=== PATIENT | female | born 1980 | race Caucasian/White ===

== ENCOUNTER 2020-04-14 14:35 | Emergency (ER) | payer MEDICAID, SELFPAY ==
[2020-04-14 14:36] VITALS: BP 135/74; PULSE 82; RESP 16; TEMP 36.8; O2SAT 100; BMI 30.4
--- NOTE | 2020-04-14 15:05 | ED.VIS.GEN ---
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 at a time she indicates she feels of her right hand fingers are numb intimately swollen sensation crosses the hand into the wrist at times her hands seem so numb that sometimes she uses the left hand at work and now she has symptoms bilaterally but right more than left no direct trauma no numbness weakness paresthesias otherwise, no history of trauma carpal tunnel syndrome or other abnormalities no other joint complaints no other complaints except as above Past Medical History - Allergies and Home Meds Allergies/Adverse Reactions: Allergies No Known Allergies Allergy (Verified 04/14/20 14:38) Primary Care Physician: Care Physician,No Primary [Primary Care Provider] - Past Medical History: None Smoking Status: Current every day smoker Review of Systems General: Denies: Chills, Fever, Sweats Eyes: Denies: Visual changes - bilaterally, Diplopia ENT: Denies: Rhinorrhea, Sore throat Cardiovascular: Denies: Chest pain, Palpitations Respiratory: Denies: Dyspnea, Cough, Dyspnea on exertion Gastrointestinal: Denies: Abdominal pain, Nausea, Vomiting, Diarrhea, Melena, Hematochezia Genitourinary: Denies: Dysuria, Hematuria, Frequency Musculoskeletal: Reports: Extremity Pain. Denies: Back pain Skin: Denies: Rash, Wounds Neurological: Denies: Headache, Weakness, Numbness Physical Exam Vital Signs/Narrative: Vital Signs Temp Pulse Resp BP Pulse Ox 04/14/20 14:36 98.2 F 82 16 135/74 H 100 General: Well nourished, Well developed, No Acute Distress Head: Normocephalic, Atraumatic Eyes: Perrl, EOMI ENT: Moist mucous membranes, No rhinorrhea Neck: Supple, Nontender Cardiovascular: Regular rate, Regular rhythm, No murmurs Respiratory: No distress, CTA bilaterally, Chest nontender Abdomen: Soft, Nontender, Nondistended, Normal bowel sounds Back: Nontender, Normal Inspection Extremities: Nontender, No edema Skin: Normal color, No rash Neurological: Alert, Oriented x3, Cranial nerves II-XII grossly intact, Normal Strength, Normal Sensation Psychological: Normal affect, Normal Mood Diagnostic/Tx/Re-eval - Medical Decision Making Physical exam is unremarkable her hand function bilaterally is normal, there is no specific discomfort to suggest definitive carpal tunnel neurovascular sensation intact all digits finger function thumb function wrist function normal bilaterally, forearm elbow is unremarkable, She indicates when she is not standing with the above she feels better at this time will place her Velcro wrist splints, she will be referred to orthopedic hand service [facility] for pain ice elevation return for change in symptoms we discussed imaging which indicates she is had no trauma of any kind and imaging is deferred Home stable Final impression right greater than left hand pain related to using industrial hand-held divya ED Disposition - Plan for ED Patient: Diagnosis: Bilateral hand pain Instructions: ED RICE Referrals: Care Physician,No Primary [Primary Care Provider] - Additional Instructions: Call [facility] [phone] for follow-up
== END 2020-04-14 15:27 | disposition home or self-care (01) ==
LOC: ED 15:15
PROVIDERS: Emergency Provider Emergency Medicine
DX: M79.641 Pain in right hand (principal); M79.642 Pain in left hand; F17.200 Nicotine dependence, unspecified, uncomplicated
CPT/HCPCS: 99283

== ENCOUNTER 2020-06-21 16:43 | Emergency (ER) | payer MEDICAID, SELFPAY ==
[2020-06-21 16:44] VITALS: BP 110/67; PULSE 67; RESP 16; TEMP 36.1; O2SAT 100; BMI 32.5
[2020-06-21 16:47] VITALS: BP 110/67; PULSE 67; RESP 16; TEMP 36.1; O2SAT 100
--- NOTE | 2020-06-21 18:10 | RAD_ITS ---
STUDY: X-RAY - RIGHT HAND, ATTENTION 1st FINGER REASON FOR EXAM: Female, 39 years old. Lump on thumb, states she uses a divya all day at work TECHNIQUE: 3 view(s) of the finger were obtained. COMPARISON: None. FINDINGS: No acute fracture, dislocation or osseous destruction. No significant joint space narrowing. No significant productive changes. No significant soft tissue swelling. IMPRESSION: Normal x-ray examination of the finger. Electronically Signed: Chris Chatman, at 19:25 EST Tel , Service support , RAD/Finger(s) Min 2 Views
--- NOTE | 2020-06-21 18:15 | ED.VIS.GEN ---
History of Present Illness Chief Complaint: Upper Extremity Injury Detail of Chief Complaint: Right thumb pain Informant: Patient Onset: Weeks - 3 to 4 weeks ago Context: Gradual Onset Timing: Continuous Quality: Pain Location: Volar surface MCP joint right thumb Current Severity: Mild Maximum Severity: Severe Worsened by: Certain movement and palpation Relieved by: Nothing Associated Symptoms: No paresthesia, anesthesia or motor weakness. Narrative: Patient is a 39-year-old [id number] woman who presents with right thumb pain she localized on the volar surface. She states she feels a lump. She does not describe symptoms of trigger finger. She denies paresthesia, anesthesia medics. She states this started several weeks ago. She feels that her joint has gone out of place. There is no history of direct trauma. There is no history of obvious deformity. There is no history of discoloration of the thumb. Prior similar symptoms: No Recent Illness/Hospitalization: No - Past Medical History (1) Allergic reaction Status: Acute Past Medical History - Allergies and Home Meds Allergies/Adverse Reactions: Allergies No Known Allergies Allergy (Verified 06/21/20 17:54) Primary Care Physician: Care Physician,No Primary [Primary Care Provider] - Prior records reviewed: No Surgical History: noncontributory Lives: With Family Smoking Status: Current every day smoker Alcohol: Rare Review of Systems General: Denies: Chills, Fever, Malaise, Subjective, Sweats Respiratory: Denies: Dyspnea, Cough, Dyspnea on exertion Gastrointestinal: Denies: Nausea, Vomiting Musculoskeletal: Reports: Extremity Pain. Denies: Myalgias, Arthralgias, Swelling Skin: Denies: Rash, Wounds Neurological: Denies: Weakness, Parasthesia, Numbness Hematologic: Denies: Easy bruising, Easy bleeding Physical Exam Vital Signs/Narrative: Vital Signs Temp Pulse Resp BP Pulse Ox 06/21/20 16:47 96.9 F L 67 16 110/67 100 06/21/20 16:44 96.9 F L 67 16 110/67 100 Inital Vital Signs reviewed: Yes General: Well nourished, Well developed, No Acute Distress Head: Normocephalic, Atraumatic Eyes: Perrl, EOMI. Negative for: Pale conjunctiva, Scleral icterus Cardiovascular: Regular rate, Regular rhythm Respiratory: No distress Extremities: No edema, Tenderness, - - Tenderness over the MCP joint of the right thumb volar surface. She has pain the patient over the ulnar aspect. There is no laxity with stressing of the ulnar collateral ligament. She has a negative Jhonny test. There is no discoloration of thumb. There is no swelling of the thumb. Skin: Normal color, No rash, No Trauma, - - Capillary refill is normal.. Negative for: Cyanosis, Diaphoresis, Jaundice Neurological: Alert, Oriented x3, Cranial nerves II-XII grossly intact, Normal Strength, Normal Sensation Psychological: Depressed Diagnostic/Tx/Re-eval Chest X-Ray - ED: Read by ED Physician, - - You x-ray of the thumb reveals a sesamoid bone. There is no fracture, subluxation or dislocation. There is no degenerative changes noted. 06/21/20 18:10 Finger(s) Min 2 Views [RAD] Stat - Medical Decision Making Trigger thumb was obtained to determine if there is evidence of a healing fracture, degenerative changes of the joint, asymmetry of the joint. Chest x-ray is normal this is a process of going on for approximate 1 month we will treat with NSAIDs and discharged home. ED Disposition - Plan for ED Patient: Disposition: Home or Assisted Living Diagnosis: Pain of right thumb Instructions: ED RICE Prescriptions: Naproxen [Naprosyn] 500 mg PO BID #14 tab Transmission Status: Pending to [facility] Referrals: Care Physician,No Primary [Primary Care Provider] - Doctor,Your [STAFF PHYSICIAN] - 1 Week if not improving Additional Instructions: The name of your primary care provider is located on your insurance card provided to you by [facility].
== END 2020-06-21 18:46 | disposition home or self-care (01) ==
LOC: ED 18:35
PROVIDERS: Emergency Provider Emergency Medicine
DX: M79.644 Pain in right finger(s) (principal); F17.200 Nicotine dependence, unspecified, uncomplicated
CPT/HCPCS: 73140; 99282

== ENCOUNTER 2021-07-08 18:05 | Emergency (ER) | payer MEDICAID, SELFPAY ==
[2021-07-08 18:06] VITALS: BP 135/82; PULSE 95; RESP 17; TEMP 35.5; O2SAT 100; BMI 29.0
--- NOTE | 2021-07-08 20:44 | RAD_ITS ---
STUDY: X-RAY CHEST REASON FOR EXAM: Female, 40 years old. cough TECHNIQUE: AP portable COMPARISON: None. FINDINGS: The lungs are clear and expanded. There is no demonstrated pleural abnormality. Normal size heart. Normal mediastinum and candy. Normal visualized pulmonary arteries. Normal visualized aortic arch and descending thoracic aorta. Normal visualized thoracic spine. Normal visualized ribs, clavicles, and shoulders. There is no demonstrated abnormality of the visualized soft tissue structures of the upper abdomen. RAD/Chest 1 View (Portable) IMPRESSION: Normal x-ray examination of the chest. Electronically Signed: Dale Stephens MD at 22:44 EST , Service support ,
--- NOTE | 2021-07-08 20:55 | EDS_ITS ---
HPI History of Present Illness Chief Complaint: Sore Throat Informant: patient Narrative Narrative: 40-year-old female states that last week she felt ill and had a sore throat. She had family member that had strep throat thought that perhaps what what it was. However that has gotten better now she is developed rhinorrhea cough fatigue. No reported fevers. She notes that her ears feel muffled PFSH PFSH Medical History no medical history Home Medications cefdinir 300 mg PO BID #19 cap 07/08/21 [Rx Last Taken Unknown] Allergy/AdvReac Type Severity Reaction Status Date / Time No Known Allergies Allergy Verified 07/08/21 18:06 Surgical History no surgical history Social History (Updated 07/08/21 @ 20:[address] Paco Oliva, DO) Smoking Status: Current every day smoker tobacco type: cigarettes substance use type: does not use ROS ROS ED ROS Narrative Fatigue Constitutional Constitutional ED: Denies chills, fever(s) or weight loss Eyes Eyes: Denies change in vision or diplopia ENT ENT ED: Reports rhinorrhea and sore throat; Denies ear pain Cardiovascular Cardiovascular: Denies chest pain, orthopnea, palpitations or racing heartbeat Respiratory/Chest Respiratory/Chest: Reports cough and sputum; Denies dyspnea or orthopnea Gastrointestinal Gastrointestinal: Denies abdominal pain, diarrhea, nausea or vomiting Genitourinary Genitourinary ED: Denies dysuria, hematuria or urinary frequency Musculoskeletal Musculoskeletal: Reports myalgias; Denies arthralgias Integumentary Denies abscess or rash Neurologic Neurologic: Denies headache(s) or weakness Psychiatric Psychiatric: Denies anxiety, depression, suicidal ideation or suicidal thoughts Endocrine Endocrinology: Denies polydipsia, polyphagia or polyuria Allergic/Immunologic Allergic/Immunologic ED: Denies mouth swelling, tongue swelling or urticaria EXAM Physical Exam Const Vital Signs: 07/08/21 18:06 Temperature 96 F L Temperature Source Temporal Pulse Rate 95 Respiratory Rate 17 Blood Pressure 135/82 H Blood Pressure Mean 99 Pulse Ox 100 Oxygen Delivery Method Room Air Positive well nourished and well developed General Appearance ED: well developed HEENT Reports normocephalic, head/scalp atraumatic and moist mucous membranes HEENT Narrative: Rhinorrhea/turbinate edema Right tympanic membrane has fluid behind the tympanic membrane and bulging but n o erythema. Left tympanic membrane has some fluid behind the membrane as well as loss of landmarks and some areas that appear hemorrhagic. Negative for trauma Eyes PERRL and EOMs intact bilaterally Neck no lymphadenopathy, supple and no JVD Resp normal respiratory effort and clear to auscultation bilaterally Cardio regular rate, regular rhythm and no murmurs GI normal to inspection, nondistended, normoactive bowel sounds and non-tender Palpation: soft Back/Spine no CVA tenderness and normal ROM Extremity normal to inspection General Extremety ED: Negative for edema General Extremity: Negative for edema Neuro oriented x3 and CN's II-XII intact bilaterally Sensorium / Orientation: alert Motor Exam: strength 5/5 throughout Psych mental status grossly normal Mood & Affect: Negative for depressed or tearful Skin no rashes or lesions noted and no wounds MDM MDM MDM Narrative Medical decision making narrative: My interpretation of the chest x-ray is no acute process. Covid and influenza swabs were negative. Patient will be placed on cefdinir for otitis media. Return if worsening or concerns Discharge Plan Triage Chief Complaint: Sore Throat ED Provider: Paco Oliva Dx/Rx/DC Orders Clinical Impression: Otitis media Instructions: ED Otitis Media Antibiotic ... Prescriptions: New cefdinir 300 mg capsule 300 mg PO BID Qty: 19 RF: 0 Primary Care Provider: Care Physician,No Primary Referrals: Care Physician,No Primary [Primary Care Provider] - Disposition Disposition: Home, Self Care
[2021-07-08] MEDS: Cefdinir 300 MG Capsule PO (22:01)
== END 2021-07-08 22:14 | disposition home or self-care (01) ==
PROVIDERS: Emergency Provider Emergency Medicine
DX: H66.90 Otitis media, unspecified, unspecified ear (principal); Z20.822 Contact with and (suspected) exposure to COVID-19; F17.210 Nicotine dependence, cigarettes, uncomplicated
CPT/HCPCS: 71045; 87426; 87804; 99283

== ENCOUNTER 2021-09-30 20:52 | Emergency (ER) | payer MEDICAID, SELFPAY ==
[2021-09-30 20:53] VITALS: BP 121/81; PULSE 90; RESP 18; TEMP 36.1; O2SAT 97; BMI 28.5
--- NOTE | 2021-09-30 22:42 | EDS_ITS ---
HPI HPI - URI History of Present Illness Chief Complaint: Sore Throat Narrative Narrative: 40-year-old female presenting with sore throat for 24 hours. She states it started mildly and has progressed to tonight. She states that she has trouble swallowing secondary to pain but is not drooling. She is not having any breathing issues. She looked at her throat and saw pus pockets in her throat. She states her daughter always has strep throat. She is concerned that she has strep throat. She has not had a fever yet she does not have nausea or vomiting. ROS ROS ED Constitutional Constitutional ED: Denies chills or fever(s) Eyes Eyes: Denies blurry vision or diplopia ENT ENT ED: Reports sore throat Cardiovascular Cardiovascular: Denies chest pain or palpitations Respiratory/Chest Respiratory/Chest: Denies cough or dyspnea Gastrointestinal Gastrointestinal: Denies abdominal pain, nausea or vomiting Genitourinary Genitourinary ED: Denies dysuria or hematuria Musculoskeletal Musculoskeletal: Denies arthralgias or myalgias Integumentary Denies rash Neurologic Neurologic: Denies headache(s) or paresthesias Psychiatric Psychiatric: Denies anxiety or depression [facility] Medical History Sore throat Home Medications cefdinir 300 mg PO BID #19 cap 07/08/21 [Rx Last Taken Unknown] amoxicillin-pot clavulanate 1 tab PO BID #20 tab 09/30/21 [Rx Last Taken Unknown] Allergy/AdvReac Type Severity Reaction Status Date / Time No Known Allergies Allergy Verified 09/30/21 20:54 Social History Smoking Status: Current every day smoker tobacco type: cigarettes substance use type: does not use EXAM Physical Exam Const Vital Signs: 09/30/21 20:53 Temperature 97.0 F L Temperature Source Temporal Pulse Rate 90 Respiratory Rate 18 Blood Pressure 121/81 H Blood Pressure Mean 94 Pulse Ox 97 Oxygen Delivery Method Room Air Positive well nourished General Appearance ED: NAD; Negative for pallor HEENT normocephalic and atraumatic Throat: posterior oropharynx abnormal Positive for edema, erythema and exudates Neck supple General: lymphadenopathy anterior cervical Resp normal respiratory effort and clear to auscultation bilaterally Cardio Rate: regular rate Rhythm: regular rhythm Neuro oriented x3 and CN's II-XII intact bilaterally Sensorium / Orientation: alert Motor Exam: strength 5/5 throughout Psych mental status grossly normal Skin General Skin Exam: Negative for jaundice or pallor MDM MDM MDM Narrative Medical decision making narrative: Patient presenting with sore throat, tonsillar edema, exudates and believes she has strep throat from her daughter. Clinically this appears to be strep throat as she also has anterior cervical lymphadenopathy. Patient does not want to be tested and wishes to be treated for strep. She is given Augmentin in the ED as well as dexamethasone. Patient is given a work note for 2 days at her request. She is to alternate Tylenol and ibuprofen for pain and fever. Return precautions discussed. Impression: 1. Strep pharyngitis Discharge Plan Triage Chief Complaint: Sore Throat ED Provider: Bib Alvarez Dx/Rx/DC Orders Instructions: ED Pharyngitis, Strep (Presumed) Prescriptions: New amoxicillin-pot clavulanate 875-125 mg tablet 1 tab PO BID Qty: 20 RF: 0 No Action cefdinir 300 mg capsule 300 mg PO BID Qty: 19 RF: 0 Primary Care Provider: Care Physician,No Primary Referrals: Aris Garcia DO [STAFF PHYSICIAN] - 3-5 Days Care Physician,No Primary [Primary Care Provider] - Disposition Disposition: Home, Self Care
[2021-09-30] MEDS: dexAMETHasone 10 MG/ML Vial PO.IVFORM (23:06)
[2021-09-30] MEDS: Amox/Clavulanate 875 MG Tablet PO (23:06)
== END 2021-09-30 23:07 | disposition home or self-care (01) ==
PROVIDERS: Emergency Provider Student in an Organized Health Care Education/Training Program; Visit Provider Student in an Organized Health Care Education/Training Program
DX: J02.0 Streptococcal pharyngitis (principal); F17.210 Nicotine dependence, cigarettes, uncomplicated
CPT/HCPCS: 99281; 96374; 99283

== ENCOUNTER 2021-10-10 15:16 | Outpatient (CLI) | payer MEDICAID, SELFPAY ==
[2021-10-13 17:21] LABS: EBV Acute VCA IgM < 36.0 U/mL (0.0-35.9); EBV Nuclear Antigen IgG > 600.0 U/mL (0.0-17.9); EBV-VCA IgG > 600.0 U/mL (0.0-17.9)
== END 2021-10-10 23:59 | disposition home or self-care (01) ==
LOC: LAB 15:18
PROVIDERS: Visit Provider Otolaryngology
DX: J03.90 Acute tonsillitis, unspecified (principal)
CPT/HCPCS: 36415; 86664; 86665; 87070; 87077

== ENCOUNTER 2024-03-23 15:15 | Emergency (ER) | payer MEDICAID, SELFPAY ==
[2024-03-23 15:15] VITALS: BP 113/69; PULSE 69; RESP 20; TEMP 36.6; O2SAT 100; BMI 27.9
--- NOTE | 2024-03-23 15:48 | EX.ED.DYSGE1 ---
HPI History of Present Illness Chief Complaint: General Illness Onset/Context/Timing Onset: Today Context: Sudden Onset Timing: Continuous Quality: Aching Location: Generalized Worsened by: Nothing Relieved by: Nothing Narrative Narrative: Patient presents with I do not feel well. Patient states she woke up early this morning feeling achy. Patient states she is having some subjective chills. Patient did not take her temperature. Patient states nothing makes her symptoms better nothing makes them worse. Patient admits to some nausea and vomiting. Patient denies any hematemesis or coffee-ground emesis. Patient was to some back pain and myalgias. Patient denies any urinary complaints. Patient denies any cough or shortness of breath. [facility] Medical History Sore throat Home Medications ?Medication ?Instructions ?Recorded ?Last Taken ?Type cefdinir 300 mg capsule 300 mg PO BID #19 caps 07/08/21 Unknown Rx amoxicillin 875 mg-potassium 1 tab PO BID #20 tabs 09/30/21 Unknown Rx clavulanate 125 mg tablet sulfamethoxazole 800 1 tab PO BID #10 TABLETS 03/23/24 Unknown Rx mg-trimethoprim 160 mg tablet Allergy/AdvReac Type Severity Reaction Status Date / Time No Known Allergies Allergy Verified 03/23/24 15:24 Surgical History Hx of tubal ligation Social History Smoking Status: Current every day smoker tobacco type: cigarettes substance use type: does not use ROS ROS ED Constitutional Constitutional ED: Reports chills and subjective; Denies fever(s) Eyes Eyes: Denies blurry vision or change in vision ENT ENT ED: Denies rhinorrhea or sore throat Cardiovascular Cardiovascular: Denies chest pain or palpitations Respiratory/Chest Respiratory/Chest: Denies cough or dyspnea Gastrointestinal Gastrointestinal: Reports nausea and vomiting Genitourinary Genitourinary ED: Denies dysuria or hematuria Musculoskeletal Musculoskeletal: Reports back pain and myalgias; Denies neck pain Integumentary Denies abscess or rash Neurologic Neurologic: Denies headache(s) or weakness Allergic/Immunologic Allergic/Immunologic ED: Denies mouth swelling or urticaria EXAM Physical Exam Const Vital Signs: 03/23/24 15:15 03/23/24 15:23 03/23/24 17:15 Temperature 97.9 F Temperature Source Temporal Pulse Rate 69 51 L Respiratory Rate 20 H 16 Respiratory Effort Normal Respiratory Pattern Normal Blood Pressure 113/69 124/86 H Blood Pressure Mean 83 98 Pulse Ox 100 98 Oxygen Delivery Method Room Air Room Air Positive well nourished and well developed General Appearance ED: well developed and NAD HEENT Reports moist mucous membranes Neck supple and no JVD Resp normal respiratory effort and clear to auscultation bilaterally Cardio regular rate and regular rhythm GI non-tender and non-distended Palpation: soft Extremity normal to inspection Neuro oriented x3, CN's II-XII intact bilaterally and no sensory deficits noted Sensorium / Orientation: alert Motor Exam: strength 5/5 throughout Psych mental status grossly normal MDM MDM MDM Narrative Medical decision making narrative: Differential diagnosis includes electrolyte abnormality, viral illness, bronchitis, and gastroenteritis. CBC will be obtained to assess for leukocytosis and anemia. Basic metabolic profile will be obtained to assess for electrolyte abnormality and renal function. COVID-19, influenza, and RSV PCR will be obtained to assess for viral illness. Urinalysis will be obtained to assess for urinary tract infection and hematuria. Lab Data Attestation: I reviewed the patient's lab results. Lab results narrative: CBC was reviewed and was within normal limits. Basic metabolic profile was reviewed and was essentially within normal limits. Serum hCG was reviewed and was negative. Urinalysis was reviewed. There are positive nitrites and 3+ bacteria. However leukocyte esterase was only 25 and there were 0-5 white blood cells. COVID-19 PCR was reviewed and was negative. Influenza PCR was reviewed and was negative for influenza A and influenza B. RSV PCR was reviewed and was negative. Labs: Laboratory Results - last 24 hr 03/23/24 03/23/24 16:09 16:35 WBC 7.8 RBC 4.81 Hgb 13.8 Hct 41.8 MCV 86.9 MCH 28.7 MCHC 33.0 RDW Std Deviation 45.1 H RDW Coeff of Wilfredo 14.1 Plt Count 377 MPV 9.6 Immature Gran % (Auto) 0.500 Neut % (Auto) 66.8 Lymph % (Auto) 24.6 [place] % (Auto) 7.2 Eos % (Auto) 0.4 Baso % (Auto) 0.5 Absolute Neuts (auto) 5.2 Absolute Lymphs (auto) 1.91 Nucleated RBC % 0 Sodium 139 Potassium 4.0 Chloride 111 H Carbon Dioxide 26.0 Anion Gap 2 L BUN 13 Creatinine 0.83 Estim Creat Clear Calc 93.72 Est GFR (MDRD) Af Amer 95 Est GFR (MDRD) Non-Af 79 BUN/Creatinine Ratio 15.6 Glucose 109 H Calcium 8.9 Serum , Qual NEGATIVE Urine Color Yellow Urine Clarity Sl. Cloudy Urine pH 7.0 Ur Specific [place] 1.010 Urine Protein Negative Urine Glucose (UA) Normal Urine Ketones Negative Urine Occult Blood 250 H Urine Nitrite Positive H Urine Bilirubin Negative Urine Urobilinogen Normal Ur Leukocyte Esterase 25 H Urine RBC 0-5 SEEN Urine WBC 0-5 SEEN Ur Squamous Epith Cells 0-5 SEEN Urine Bacteria 3+ Urine Mucus 0 SEEN Treatment and Re-Evaluation :: Patient was given IV fluids and Tylenol here. Patient was feeling better on reevaluation. Patient was advised of her findings. Patient was given a prescription for a course of Bactrim. Patient was instructed to follow-up with her primary care physician in 5 to 7 days. Patient was instructed to continue Tylenol and ibuprofen as needed for any aches or fevers. Patient was instructed to drink plenty of fluids. Patient understood and was agreeable with the plan. All questions were answered. Discharge Plan Triage Chief Complaint: General Illness ED Provider: Ulises Hernandez Dx/Rx/DC Orders Clinical Impression: Urinary tract infection, Acute febrile illness Instructions: ED Fever Control (Adult), ED Cystitis Female Adult Prescriptions: New sulfamethoxazole-trimethoprim 800-160 mg tablet 1 tab PO BID Qty: 10 0RF No Action cefdinir 300 mg capsule 300 mg PO BID Qty: 19 0RF amoxicillin-pot clavulanate 875-125 mg tablet 1 tab PO BID Qty: 20 0RF Primary Care Provider: Care Physician,No Primary Referrals: Care Physician,No Primary [Primary Care Provider] - Print Language: Korean Disposition Disposition: Home, Self Care
[2024-03-23] MEDS: 0.9% Normal Saline (1000mL) 1,000 ML 1000 ML IV (16:07)
[2024-03-23] MEDS: Ondansetron 4 MG/2 ML Vial IV (16:07)
[2024-03-23] MEDS: Acetaminophen 500 MG Tablet 1000 MG PO (16:07)
[2024-03-23 16:19] LABS: Absolute Lymphocyte Count 1.91 X10^3/uL (0.83-4.51); Absolute Neutrophil Count 5.2 X10^3/uL (2.0-7.7); Basophil# 0.04 X10^3/uL; Basophil% 0.5 % (0-1); Eosinophil# 0.03 X10^3/uL; Eosinophils% 0.4 % (0-5); Hematocrit 41.8 % (37-47); Hemoglobin 13.8 g/dL (12.0-15.0); Lymphocyte # 1.91 X10^3/ul (0.83-4.51); Lymphocyte % 24.6 % (19-41); Mean Corpuscular Hgb 28.7 pg (27.0-32.0); Mean Corpuscular Volume 86.9 fL (81-99); Mean Platelet Vol. 9.6 fl (6.2-12.0); Monocyte# 0.56 X10^3/uL; Monocyte% 7.2 % (0-10); NRBC Flagged by Analyzer 0 % (0-5); Neutrophil # 5.19 X10^3/uL (2.7-7.7); Neutrophil % 66.8 % (47-70); Platelet Count 377 K/mm3 (150-450); RBC Distribution Width CV 14.1 % (11.6-14.6); RBC Distribution Width SD 45.1 fl (35.1-43.9); Red Blood Count 4.81 M/mm3 (4.2-5.4); White Blood Count 7.8 K/mm3 (4.4-11.0)
[2024-03-23 16:36] LABS: Anion Gap 2 (5-15); BUN 13 mg/dL (7-18); BUN/Creat Ratio 15.6 RATIO (10-20); Calcium,Total 8.9 mg/dL (8.5-10.1); Chloride 111 mmol/L (98-107); Creatinine, Serum 0.83 mg/dL (0.55-1.02); EST Glomerular Filtration Rate 79 mL/min (>60); Est Glom Filt Rate - Afr Amer 95 mL/min (>60); Estimated Creatinine Clearance 93.72 ml/min; Glucose 109 mg/dL (74-106); Sodium Level 139 mmol/L (136-145)
[2024-03-23 16:40] LABS: Mucous, Urine 0 SEEN /hpf (<or=2+)
[2024-03-23 16:44] LABS: Internal QC Validated? YES +Cl - CLEAR BKGD; Pregnancy, Serum, hCG Quali. NEGATIVE Negative; Record Kit Lot#, Serum Preg. 772476
[2024-03-23 16:45] LABS: Color, Urine Yellow (Yellow); Glucose, Dipstick Normal (Normal); Ketone-Dipstick Negative (Negative); Leukocyte Esterase-Dipstick 25 /ul (Negative); Nitrite-Dipstick Positive (Negative); Occult Blood-Urine 250 /ul (Negative); Protein-Dipstick Negative (Negative); Urine Bilirubin Dipstick Negative (Negative); Urine Clarity Sl. Cloudy (Clear); Urine Urobilinogen Normal (Normal)
[2024-03-23 16:54] LABS: Squamous Epithelial Cells - UA 0-5 SEEN /hpf (5-10)
[2024-03-23 16:55] LABS: Bacteria 3+ /hpf (None Seen); Red Blood Cells-Urine 0-5 SEEN /hpf (0-5); White Blood Cells 0-5 SEEN /hpf (0-5)
[2024-03-23 17:15] VITALS: BP 124/86; PULSE 51; RESP 16; O2SAT 98
[2024-03-23 18:58] VITALS: BP 108/64; PULSE 83; RESP 16; TEMP 36.3; O2SAT 98
[2024-03-23] MEDS: Smz/Tmp Ds Tablet 1 TABLET PO (19:02)
== END 2024-03-23 19:02 | disposition home or self-care (01) ==
PROVIDERS: Emergency Provider Emergency Medicine; Visit Provider Emergency Medicine
DX: N39.0 Urinary tract infection, site not specified (principal); M79.10 Myalgia, unspecified site; Z11.52 Encounter for screening for COVID-19; R11.2 Nausea with vomiting, unspecified; F17.210 Nicotine dependence, cigarettes, uncomplicated
CPT/HCPCS: 80048; 81001; 84703; 85025; 87631; 96361; 96374; 99283; J7030; A4216; J2405

== ENCOUNTER 2024-11-30 00:53 | Emergency (ER) | payer MEDICAID, SELFPAY ==
[2024-11-30 00:54] VITALS: BP 167/88; PULSE 93; RESP 16; TEMP 36.7; O2SAT 100; BMI 32.3
--- NOTE | 2024-11-30 01:25 | CT_ITS ---
PROCEDURE: CTA NECK W/WO CONTRAST 11/30/2024 REASON FOR EXAM: NECK PAIN S/P STRANGULATION INJURY TECHNIQUE: CTA HEAD AND NECK WITH IV CONTRAST: Multiplanar and multisequence images were obtained. 3D, 3D post processing, 3D reconstructions, Maximum intensity projection (MIPs) Volume rendering and Shaded surface rendering was provided. CONTRAST: 93 cc Isovue 370 IV One or more dose reduction techniques were used (e.g., Automated exposure control, adjustment of the mA and/or kV according to patient size, use of iterative reconstruction technique). RADIATION DOSE SUMMARY: CTDlvol: 20.76 mGy DLP: 492.58 mGycm COMPARISON: None available FINDINGS: Thoracic aortic arch appears within limits with standard three-vessel appearing arch. The cervical vertebral arteries are essentially codominant slightly larger on the left and both appear to contribute to the basilar artery. No flow significant stenosis, dissection or vessel cut off identified. The right common, internal and external carotid arteries appear intact without flow significant stenosis, dissection or vessel cut off. The left common, internal and external carotid arteries appear intact without flow significant stenosis, dissection or vessel cut off. No fracture or malalignment. No prevertebral soft tissue swelling. C5-6 spondylosis/discogenic change with moderate appearing disc space narrowing and suggestion of possible posterior disc osteophyte complex. Epiglottis and aryepiglottic folds appear within limits. No airway narrowing identified. Hyoid bone appears intact. Poor appearing dentition noted. The paranasal sinuses, mastoids and orbits appear within limits. The visualized upper lungs appear clear. CT/CTA Neck W/WO Contrast IMPRESSION: No arterial abnormality identified as above. No fracture or malalignment. C5-6 spondylosis/discogenic change. Poor appearing dentition. Reading Location: [id number]
[2024-11-30] MEDS: Ketorolac 30 MG/ML Syringe IV (01:40)
[2024-11-30] MEDS: 0.9% Normal Saline (1000mL) 1,000 ML 999 ML IV (01:40)
[2024-11-30 01:53] LABS: Absolute Lymphocyte Count 2.51 X10^3/uL (0.83-4.51); Absolute Neutrophil Count 7.5 X10^3/uL (2.0-7.7); Basophil# 0.02 X10^3/uL; Basophil% 0.2 % (0-1); Eosinophil# 0.08 X10^3/uL; Eosinophils% 0.7 % (0-5); Hemoglobin 12.8 g/dL (12.0-15.0); Lymphocyte # 2.51 X10^3/ul (0.83-4.51); Mean Corp Hgb Conc 33.7 g/dL (32-36); Mean Corpuscular Hgb 29.3 pg (27.0-32.0); Mean Platelet Vol. 9.9 fl (6.2-12.0); Monocyte# 0.81 X10^3/uL; Monocyte% 7.4 % (0-10); NRBC Flagged by Analyzer 0 % (0-5); Neutrophil # 7.45 X10^3/uL (2.7-7.7); Neutrophil % 68.3 % (47-70); Platelet Count 371 K/mm3 (150-450); RBC Distribution Width CV 13.2 % (11.6-14.6); RBC Distribution Width SD 41.8 fl (35.1-43.9); Red Blood Count 4.37 M/mm3 (4.2-5.4); White Blood Count 10.9 K/mm3 (4.4-11.0)
[2024-11-30 02:10] LABS: Anion Gap 11 (5-15); BUN 22 mg/dL (4-19); BUN/Creat Ratio 24.4 RATIO (10-20); Calcium,Total 9.2 mg/dL (7.6-11.0); Carbon Dioxide 22.6 mmol/L (21.0-32.0); Chloride 105 mmol/L (98-108); EST Glomerular Filtration Rate 80 (>60); Estimated Creatinine Clearance 91.84 ml/min (50-250); Glucose 112 mg/dL (70-99); Potassium 3.3 mmol/L (3.3-5.1); Sodium Level 138 mmol/L (133-145)
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
[2024-11-30 02:55] VITALS: BP 142/71; PULSE 84; RESP 16; TEMP 36.7; O2SAT 100
== END 2024-11-30 02:56 | disposition home or self-care (01) ==
PROVIDERS: Emergency Provider Emergency Medicine; Visit Provider Emergency Medicine
DX: S10.93XA Contusion of unspecified part of neck, initial encounter (principal); T71.193A Asphyxiation due to mechanical threat to breathing due to other causes, assault, initial encounter; F17.210 Nicotine dependence, cigarettes, uncomplicated
CPT/HCPCS: 70498; 80048; 85025; 96361; 96374; 99283; Q9967; A4216

== ENCOUNTER 2025-04-25 13:27 | Emergency (ER) | payer MEDICAID, SELFPAY ==
[2025-04-25 13:27] VITALS: BP 138/78; PULSE 85; RESP 15; TEMP 36.8; O2SAT 100
--- NOTE | 2025-04-25 14:34 | VDLE_ITS ---
Reason For Study Reason For Study: RLE PAIN RIGHT LEFT GSV is normal. CFV is compressible, spontaneous, competent, and CFV is compressible, spontaneous, competent and demonstrates pulsatile venous flow. demonstrates pulsatile venous flow. FV is compressible, spontaneous, competent and demonstrates pulsatile venous flow. POP V is compressible, spontaneous, competent and demonstrates pulsatile venous flow. T/P Trunk is compressible. PTV is compressible. RT PerV is compressible. Procedure This is a venous duplex using B-mode, color flow and spectral Doppler. Exam performed portable in ED. A preliminary report was called and/or faxed to ED. VL/Venous Duplex US, Unilateral Interpretation Summary Deep veins of the right lower extremity are patent and compressible segmentally . There is no evidence of right lower extremity deep vein thrombosis. Valvular competence appears intact within the p roximal deep venous system on the right . The right great saphenous vein appears patent and compressible segmentally. The left common femoral vein is patent and compressible . Pulsatile flow is noted in the deep venous system bilaterally, w hich may be indicative of elevated central venous pressure (i.e. congestive heart failure, pulmonary hypertension, etc.). Clinical correlation is advised. Ordering Physician: Dangelo Schwartz Referring Physician: NON PCP Performed By: Irish Elizabeth RDCS, RVT
--- NOTE | 2025-04-25 14:35 | EDS_ITS ---
HPI History of Present Illness Chief Complaint: Lower Extremity Injury Narrative Narrative: 44-year-old female who denies significant past medical history presents with right thigh pain that she has had for the last 5 days she states about a week ago she went for a walk and 2 days later developed right thigh pain. It has become increasingly worse. She denies any trauma or fall. She states that it radiates down to her leg and her foot feels numb. She denies any chest pain or shortness of breath, no exacerbating or alleviating factors. No DVT or PE risk factors. PFSH PFSH Medical History Sore throat Home Medications ?Medication ?Instructions ?Recorded ?Last Taken ?Type cyclobenzaprine 10 mg tablet 10 mg PO TID PRN muscle s pasm #20 04/25/25 Unknown Rx tabs hydrocodone-acetaminophen 5-325mg 1 tab PO TID PRN miller n 3 days #9 04/25/25 Unknown Rx 5mg-325mg tabs Allergy/AdvReac Type Severity Reaction Status Date / Time No Known Allergies Allergy Verified 04/25/25 13:30 Surgical History Hx of tubal ligation Social History Smoking Status: Current every day smoker tobacco type: cigarettes substance use type: does not use ROS ROS ED ROS Narrative Review of systems positive for right thigh pain, no chest pain or shortness of breath, no back pain no red flag signs for cauda equina, no saddle anesthesia. EXAM Physical Exam Narrative Exam Narrative: Afebrile. Vital signs noted. Nontoxic-appearing. Cardiovascular examination reveals a regular rate and rhythm. Lungs are clear to auscultation bilaterally. Abdomen is soft nontender with normoactive bowel sounds. Diffuse tenderness to palpation throughout the lateral right thigh, no crepitance. No noted erythema. No noted swelling. Neurovascular intact distally. No vertebral point tenderness of back, no step-off. No tenderness in right sciatic notch. Const Vital Signs: 04/25/25 13:27 Temperature 98.2 F Temperature Source Oral Pulse Rate 85 Respiratory Rate 15 Blood Pressure 138/78 H Blood Pressure Mean 98 Pulse Ox 100 MDM MDM MDM Narrative Medical decision making narrative: Differential diagnosis includes but not limited to muscle strain versus spasm versus DVT versus lumbar radiculopathy/sciatica. Ultrasound will be obtained to rule out DVT as well as CT imaging of the right thigh. I do not feel contrast is indicated. I reviewed the radiology report of the venous Doppler study which shows no evidence of right lower extremity DVT. In addition I reviewed the radiology report of CT of the right thigh/femur which shows no acute process, unremarkable. At this point in time, while I am unsure as to the cause of her right thigh pain, does seem to be more radicular as she states it is on the lateral aspect and radiates downward. She has no back pain and no tenderness in the sciatic notch. She was given prescriptions for muscle relaxer in the form of Flexeril as well as 9 [place] tablets. I feel she can be discharged to follow-up with her primary care provider. Return instructions to the emergency department were reviewed. Disposition is discharged home in stable condition. History & Record Review Discussion w/independent historian: Patient Radiography Diagnostic Testing: Clinical Impression(s) from Imaging Studies Venous Doppler Study 04/25/25 14:34 Interpretation Summary Deep veins of the right lower extremity are patent and compressible segmentally. There is no evidence of right lower extremity deep vein thrombosis. Valvular competence appears intact within the proximal deep venous system on the right . The right great saphenous vein appears patent and compressible segmentally. The left common femoral vein is patent and compressible . Pulsatile flow is noted in the deep venous system bilaterally, which may be indicative of elevated central venous pressure (i.e. congestive heart failure, pulmonary hypertension, etc.). Clinical correlation is advised. Ordering Physician: Dangelo Schwartz Referring Physician: NON PCP Performed By: Irish Elizabeth, RDCS, RVT Lower Extremity CT 04/25/25 14:45 IMPRESSION: Unremarkable examination. Reading Location: [place] [id number] Discharge Plan Triage Chief Complaint: Lower Extremity Injury ED Provider: Dangelo Schwartz Dx/Rx/DC Orders Clinical Impression: Acute pain of right thigh, Lumbar radicular pain Instructions: ED Pain, Acute, Uncertain Cause, ED Sciatica Prescriptions: New cyclobenzaprine 10 mg tablet 10 mg PO TID PRN (Reason: muscle spasm) Qty: 20 0RF hydrocodone-acetaminophen 5-325 mg tablet 1 tab PO TID PRN (Reason: pain) 3 Days Qty: 9 0RF Primary Care Provider: Aris Figueroa Referrals: Care Physician,No Primary [Non-Staff, Medical] Activity Restrictions/Additional Instructions: Follow-up with your primary care provider in the next 3 to 5 days if not improving. Medication as directed. Return with fever, new or worsening symptoms. Print Language: Tunisian Disposition Disposition: Home, Self Care
--- NOTE | 2025-04-25 14:45 | CT_ITS ---
PROCEDURE: EXTREMITY LOWER WITHOUT CONTRA 04/25/2025 REASON FOR EXAM: PAIN Right lower extremity pain. TECHNIQUE: Procedure Code: CTELWO Modality: CT Procedure: EXTREMITY LOWER WITHOUT CONTRA Coronal and Sagittal reconstruction series were provided. CONTRAST: None One or more dose reduction techniques were used (e.g., Automated exposure control, adjustment of the mA and/or kV according to patient size, use of iterative reconstruction technique). RADIATION DOSE SUMMARY: CTDlvol: 18.29 mGy DLP: 1197.48 mGycm COMPARISON: None FINDINGS: Bones: No evidence of fracture. Joints: Joint space(s) preserved. No subluxation or dislocation. Soft Tissues: Unremarkable. CT/Extremity Lower without Contra IMPRESSION: Unremarkable examination. Reading Location: [place] [id number]
[2025-04-25 15:50] VITALS: BP 112/65; PULSE 70; RESP 14; TEMP 36.4; O2SAT 100
== END 2025-04-25 15:51 | disposition home or self-care (01) ==
PROVIDERS: Emergency Provider Emergency Medicine; PCP Family Medicine; Visit Provider Emergency Medicine
DX: M79.651 Pain in right thigh (principal); M54.16 Radiculopathy, lumbar region; F17.210 Nicotine dependence, cigarettes, uncomplicated
CPT/HCPCS: 73700; 93971; 99282